=== PATIENT | female | born 1970 | race Caucasian/White ===

== ENCOUNTER → 2024-05-19 09:41 | Outpatient (BNVA) | payer BC, SELFPAY | PROVIDERS: Visit Provider Internal Medicine | DX: E03.9 Hypothyroidism, unspecified (principal); E06.3 Autoimmune thyroiditis | CPT/HCPCS: 36415; 84439; 84443 ==

== ENCOUNTER 2024-05-25 12:20 | Outpatient (CLI) | payer BC, SELFPAY ==
[2024-05-25 13:48] LABS: Erythrocyte Sedimentation Rate 24 mm/hr (0-15)
[2024-05-26 14:09] LABS: CENTROMERE B ANTIBODY <1.0 NEG AI (<1.0 NEG); JO-1 ANTIBODY <1.0 NEG AI (<1.0 NEG); RNP ANTIBODY <1.0 NEG AI (<1.0 NEG); SCL-70 ANTIBODY <1.0 NEG AI (<1.0 NEG); SJOGREN'S ANTIBODY (SS-A) <1.0 NEG AI (<1.0 NEG); SM ANTIBODY <1.0 NEG AI (<1.0 NEG); SS-B <1.0 NEG AI (<1.0 NEG)
[2024-05-26 14:24] LABS: Cyclic Citrullinated Peptide <16 UNITS
[2024-05-26 14:55] LABS: COMPLEMENT, TOTAL (CH50) 50 U/mL (31-60)
[2024-05-26 16:30] LABS: COMPLEMENT COMPONENT C3C 146 mg/dL (83-193); COMPLEMENT COMPONENT C4C 24 mg/dL (15-57)
[2024-05-27 00:20] LABS: HLA-B27 NEGATIVE (NEGATIVE)
[2024-05-27 10:49] LABS: THYROID PEROXIDASE ANTIBODIES 127 IU/mL (<9)
[2024-05-27 11:09] LABS: ANA SCREEN, IFA POSITIVE (NEGATIVE)
[2024-06-03 00:25] LABS: DNA AB (DS) CRITHIDIA,IFA NEGATIVE (NEGATIVE)
== END 2024-05-25 12:21 | disposition home or self-care (01) ==
LOC: LAB 12:21
PROVIDERS: Visit Provider Internal Medicine
DX: E06.3 Autoimmune thyroiditis (principal); E03.9 Hypothyroidism, unspecified; R13.10 Dysphagia, unspecified; D89.89 Other specified disorders involving the immune mechanism, not elsewhere classified
CPT/HCPCS: 36415; 85651; 86140; 86160; 86162; 86200; 86235; 86255; 86376; 86431; 86812

== ENCOUNTER → 2025-02-10 10:52 | Outpatient (BNVA) | payer BC, SELFPAY | PROVIDERS: Visit Provider Internal Medicine | DX: E06.3 Autoimmune thyroiditis (principal); E03.9 Hypothyroidism, unspecified; R13.10 Dysphagia, unspecified; R63.5 Abnormal weight gain | CPT/HCPCS: 36415; 84439; 84443 ==

== ENCOUNTER 2025-07-25 11:36 | Outpatient (CLI) | payer BC, SELFPAY ==
[2025-07-25 12:50] LABS: Free T4 Free Thyroxine 1.29 ng/dL (0.82-1.77); Thyroid Stimulating Hormone 3.57 uIU/mL (0.27-4.20)
== END 2025-07-25 11:37 | disposition home or self-care (01) ==
PROVIDERS: Visit Provider Internal Medicine
DX: E03.9 Hypothyroidism, unspecified (principal)
CPT/HCPCS: 36415; 84439; 84443